=== PATIENT | female | born 1950 | race Caucasian/White ===

== ENCOUNTER 2023-12-31 10:12 | Outpatient (CLI) | payer MEDICARE, OTHER, SELFPAY ==
--- NOTE | ~2023-12-31 | XR_ITS ---
XR chest 2V 12/31/2023 10:33 Indication: Chronic cough Procedure: 2 view chest Comparison: No prior studies for comparison. Findings: Heart size normal. There is left basilar atelectasis/scarring. No edema, focal pneumonia or pneumothorax. No pleural effusion.. Impression: 1: Left basilar atelectasis/scarring.. Reviewed, dictated and finalized at location B. Impression: 1: Left basilar atelectasis/scarring..
== END 2023-12-31 10:13 ==
PROVIDERS: PCP Hospitalist
DX: R05.3 Chronic cough (principal); R91.8 Other nonspecific abnormal finding of lung field
CPT/HCPCS: 71046